=== PATIENT | male | born 1945 | race Caucasian/White ===

== ENCOUNTER 2021-08-29 02:19 | Emergency (ER) | payer OTHER ==
[~2021-08-29] VITALS: Ht 167.6 cm; Wt 61.2 kg
[2021-08-29] MEDS ORDERED: LIDOCAINE 2% JEL UROJET 10 ML MM ONE (02:27)
--- NOTE | 2021-08-29 02:35 | NUR ---
PT BIBPA FOR HEMATURIA AND PAIN AT CATHETER SITE FOR [facility]. PT HAD INDWELLING CATHETER INSERTED TODAY. PT AWAKE AND ALERT AT BASELINE MENTATION X1. GROSS HEMATURIA NOTED IN COLLECTION BAG. PT PLACED ON MONITOR AND V/S WNL.
--- NOTE | 2021-08-29 02:41 | NUR ---
3-WAY MCLEOD CATHETER INSERTED FOR CONTINUOUS BLADDER IRRIGATION PER MD ORDER. PT TOLERATED WELL. BLOODY OUTPUT NOTED IN COLLECTION BAG.
--- NOTE | 2021-08-29 03:40 | NUR ---
PT OUTPUT REMAINS BLOODY AFTER COMPLETING IRRIGATION. SECOND IRRIGATION BAG INITIATED.
--- NOTE | 2021-08-29 03:51 | NUR ---
URINE SAMPLE COLLECTED AND SENT TO LAB
[2021-08-29 03:54] LABS: BILIRUBIN,URINE NEGATIVE (NEGATIVE); COLOR,URINE RED (YELLOW); LEUKOCYTE ESTERASE ,URINE TRACE (NEGATIVE); NITRITE, URINE NEGATIVE (NEGATIVE); PROTEIN,URINE >=300 mg/dl (NEGATIVE); UGLUCOSE NEGATIVE (NEGATIVE); UROBILINOGEN,URINE 0.2 EU/dL (0.2)
--- NOTE | 2021-08-29 04:55 | NUR ---
PT BEING TRANSPORTED TO [facility]
--- NOTE | 2021-08-29 05:08 | NUR ---
PT RETURNED FROM [facility]
--- NOTE | 2021-08-29 05:56 | NUR ---
18G ESTABLISHED AT . PATENT AND INTACT. LAB AT BEDSIDE FOR BLOOD DRAW.
[2021-08-29] MEDS ORDERED: WATER FOR INJECTION,STERILE 10 ML ONE (06:24)
[2021-08-29] MEDS ORDERED: ZIPRASIDONE MESYLATE 20 MG/VIAL VIAL IM ONE ×2 (06:24→06:30)
[2021-08-29 06:26] LABS: ALANINE AMINOTRANSFERASE 23 U/L (12-78); ALBUMIN 2.9 g/dL (3.4-5.0); ALKALINE PHOSPHATASE 102 U/L (46-116); ASPARTATE AMINOTRANSFERASE 15 U/L (15-37); BILIRUBIN,DIRECT 0.1 mg/dL (0.0-0.2); BILIRUBIN,TOTAL 0.3 mg/dL (0.2-1.0); CALCIUM, SERUM 8.5 mg/dL (8.5-10.1); CARBON DIOXIDE 26 mmol/L (21-32); CHLORIDE 108 mmol/L (98-107); CREATININE 2.3 mg/dL (0.6-1.3); GLUCOSE 93 mg/dL (74-106); POTASSIUM 4.2 mmol/L (3.5-5.1); SODIUM SERUM 143 mmol/L (136-145); TOTAL PROTEIN, SERUM 6.5 g/dL (6.4-8.2); UREA NITROGEN, BLOOD 34 mg/dL (7-18)
--- NOTE | 2021-08-29 06:44 | NUR ---
COVID ANTIGEN SWAB COLLECTED AND SENT TO LAB
[2021-08-29 07:08] LABS: BASOPHILS % (AUTO) 0.3 % (0.0-2.0); EOSINOPHILS % (AUTO) 4.4 % (0.0-6.0); HEMATOCRIT 30 % (39-51); HEMOGLOBIN 10.1 g/dL (13.5-17.5); LYMPHOCYTES # (AUTO) 2.7 K/uL (0.8-4.8); LYMPHOCYTES % (AUTO) 35.1 % (20.0-44.0); MEAN CORPUSCULAR HGB CONC 34 g/dl (31.0-36.0); MEAN CORPUSCULAR VOLUME 86 fL (80-96); MONOCYTES # (AUTO) 0.5 K/uL (0.1-1.30); MONOCYTES % (AUTO) 6.5 % (2.0-12.0); NEUTROPHILS # (AUTO) 4.1 K/uL (1.8-8.9); NEUTROPHILS % (AUTO) 53.7 % (43.0-81.0); PLATELET COUNT (AUTO) 132 K/uL (150-450); RED BLOOD CELL COUNT(AUTO) 3.44 MIL/uL (4.5-6.0); WHITE BLOOD COUNT (AUTO) 7.7 K/uL (4.3-11.0)
[2021-08-29 07:20] LABS: BACTERIA,URINE Moderate /HPF (None Seen); RBC,URINE TOO NUMEROUS TO COUN /HPF (0-2)
[2021-08-29 07:21] LABS: SQUAMOUS EPITHELIAL CELL,UR None Seen /HPF (None Seen)
[2021-08-29] MEDS ORDERED: CRAN3875 PO (07:51)
[2021-08-29] MEDS ORDERED: FINA5TAB11 PO (07:51)
[2021-08-29] MEDS ORDERED: ATOR10TA PO (07:51)
[2021-08-29] MEDS ORDERED: ACET-2605 PO (07:51)
[2021-08-29] MEDS ORDERED: DIVA125T32 PO (07:51)
[2021-08-29] MEDS ORDERED: LEVE500T20 PO (07:51)
[2021-08-29] MEDS ORDERED: TERA10CA4 PO (07:51)
[2021-08-29] MEDS ORDERED: NA P133E RC (07:51)
[2021-08-29] MEDS ORDERED: ACET-868 PO (07:51)
[2021-08-29] MEDS ORDERED: CYAN-51 PO (07:51)
[2021-08-29] MEDS ORDERED: QUET25TA PO (07:51)
[2021-08-29] MEDS ORDERED: PROP20TA19 PO (07:51)
--- NOTE | 2021-08-29 08:15 | NUR ---
CALLED [facility] [phone].
[2021-08-29] MEDS ORDERED: LORAZEPAM INJ 2 MG/ML VIAL ONE (08:51)
--- NOTE | 2021-08-29 09:00 | NUR ---
PATIENT AGITATED, CONFUSED, AND SCREAMING. PULLED OUT IV LINE. INSERTED ANOTHER IV RH 20G
--- NOTE | 2021-08-29 09:05 | NUR ---
AMARJIT CALLED DR. LÓPEZ SPEAKING WITH DR. SHANNON.
[2021-08-29] MEDS ORDERED: LORAZEPAM INJ 2 MG/ML VIAL IV ONE (09:30)
--- NOTE | 2021-08-29 09:57 | NUR ---
BLS TO [facility] [phone] [facility] TRANSPORT WITH PRN AT [id number]
[2021-08-29 10:22] VITALS: BP 127/73
--- NOTE | 2021-08-29 10:35 | NUR ---
REPORT GIVEN TO JOMAR RODGERS FOR [facility]
--- NOTE | 2021-08-29 10:45 | NUR ---
TRANSPORT PRN HERE FOR TRANSPORT.
--- NOTE | 2021-08-29 10:57 | NUR ---
PICKED UP BY TRANSPORT IN STABLE CONDITION
== END 2021-08-29 11:34 | disposition short-term general hospital (02) ==
LOC: ER 02:32
DX: T83.098A Other mechanical complication of other urinary catheter, initial encounter (principal); R31.0 Gross hematuria; R45.1 Restlessness and agitation; F03.90 Unspecified dementia, unspecified severity, without behavioral disturbance, psychotic disturbance, mood disturbance, and anxiety; N13.9 Obstructive and reflux uropathy, unspecified; K21.9 Gastro-esophageal reflux disease without esophagitis; Z20.822 Contact with and (suspected) exposure to COVID-19; Z79.899 Other long term (current) drug therapy
CPT/HCPCS: 36415; 51702; 72192; 80048; 80076; 81001; 85025; 85730; 86850; 87086; 87426; 96372; 96374; 99284; A4217 ×4; C9803; J2060; J3486; J3490